=== PATIENT | female | born 1960 | race Caucasian/White ===

== ENCOUNTER 2024-03-09 02:56 | Emergency (ER) | payer BC ==
[~2024-03-09] VITALS: Ht 157.5 cm; Wt 58.2 kg
[2024-03-09 03:03] VITALS: BP 183/95; PULSE 64; RESP 16; TEMP 97.8; O2SAT 100
[2024-03-09] MEDS ORDERED: AMOX-494 MT (05:01)
== END 2024-03-09 05:09 | disposition home or self-care (01) ==
LOC: ER 02:56
DX: T16.2XXA Foreign body in left ear, initial encounter (principal); I10 Essential (primary) hypertension; Z00.00 Encounter for general adult medical examination without abnormal findings; W44.9XXA Unspecified foreign body entering into or through a natural orifice, initial encounter; Y93.89 Activity, other specified; Y92.89 Other specified places as the place of occurrence of the external cause; Y99.8 Other external cause status
CPT/HCPCS: 69200; 99284